=== PATIENT | male | born 1995 | race Caucasian/White ===

== ENCOUNTER → 2016-12-30 | Outpatient (CLI) | payer BC, OTHER ==
--- NOTE | 2016-12-30 16:03 | DIAGNOSTIC IMAGING REPORT ---
BONE SCAN OF THE LUMBAR SPINE WITH SPECT IMAGING CLINICAL HISTORY: Low back pain. Reported history of spondylolysis. COMPARISON STUDY: Radiograph of lumbar spine dated 11/30/2012. TECHNIQUE: Three hours following the IV administration of 27 mCi of technetium 99m MDP, nuclear bone scan of the lumbar spine is performed. Images are acquired in multiple obliquities. SPECT imaging was performed in the axial, sagittal, and coronal planes. FINDINGS: There is normal and homogeneous tracer distribution seen throughout the imaged thoracolumbar spine and bony pelvis. No significant degenerative activity is identified. There is focal abnormal activity identified at the left pars interarticularis at L5. No additional foci of abnormal activity are seen. There is expected excreted activity within the renal collecting system and bladder. IMPRESSION: 1. There is focal abnormal tracer deposition identified at the left pars interarticularis of L5. This likely corresponds to spondylolysis as clinically suspected. 2. No additional foci of abnormal tracer deposition are seen. Electronically signed by: Georges Almendarez M.D. 12/30/2016 4:02 PM Dictated Date/Time: 12/30/2016 3:54 PM
== END | disposition home or self-care (01) ==
LOC: C.NUCL 12:01
PROVIDERS: ATTEND Orthopaedic Surgery Sports Medicine
DX: M54.5 Low back pain (principal); M53.86 Other specified dorsopathies, lumbar region